=== PATIENT | male | born 1985 | race Caucasian/White ===

== ENCOUNTER → 2024-12-02 13:13 | Outpatient (REF) | payer BC, SELFPAY ==
[2024-12-02 14:13] LABS: Hematocrit 40.2 % (39.0-52.0); Hemoglobin 14.3 g/dL (13.0-18.0); Mean Corp Hgb Conc. 35.6 g/dL (33.0-37.0); Mean Corpuscular Volume 88.2 fL (80.0-94.0); Nucleated Red Blood Cells % 0 % (-); Platelet Count 199 10^3/uL (130-400); Red Cell Dist. Width 11.6 % (11.5-14.5)
[2024-12-02 14:43] LABS: ALT (SGPT) 16 U/L (0-50); AST (SGOT) 24 U/L (17-59); Albumin 4.8 g/dl (3.5-5.0); Alkaline Phosphatase 46 U/L (38-126); Blood Urea Nitrogen 19 mg/dl (9-20); Calcium 9.4 mg/dl (8.4-10.2); Carbon Dioxide 29 mmol/L (22-30); Chloride 105 mmol/L (98-107); Glucose 93 mg/dl (70-99); HDL Cholesterol 46 mg/dl; LDL Cholesterol, Calculated 158 mg/dl; Potassium 4.3 mmol/L (3.5-5.1); Sodium 140 mmol/L (135-145); Total Protein 7.2 g/dl (6.3-8.2); Very Low Density Lipoprotein 24 mg/dl (0-30); eGFR > 60.00
[2024-12-02 14:47] LABS: C-Reactive Protein < 5.00 mg/L (0.0-10.00)
[2024-12-02 15:04] LABS: Vitamin D, 25-OH*** 43.4 ng/mL (30-80)
[2024-12-02 15:37] LABS: Vitamin B12 742 pg/ml (239-931)
[2024-12-02 18:01] LABS: Hepatitis B Surface Antigen Negative (Negative)
[2024-12-02 18:19] LABS: Hepatitis C Antibody Negative (Negative)
[2024-12-03 09:35] LABS: Glycohemoglobin (HgbA1c) 5.2 % (4.0-5.6)
[2024-12-04 11:42] LABS: tTG IgA Antibody 4.8 EU/ml (0-19); tTG IgG Antibody 5.4 EU/ml (0-19)
== END ==
LOC: REG 13:13
PROVIDERS: ATTENDING PHYSICIAN Nurse Practitioner Family
DX: Z00.00 Encounter for general adult medical examination without abnormal findings (principal); R10.9 Unspecified abdominal pain; K52.9 Noninfective gastroenteritis and colitis, unspecified; Z11.59 Encounter for screening for other viral diseases
CPT/HCPCS: 36415; 80053; 80061; 82306; 82607; 82784; 83036; 83516; 83993; 84443; 85025; 86140; 86231; 86803; 87340